=== PATIENT | male | born 1945 | race Caucasian/White ===

== ENCOUNTER 2023-12-14 17:43 | Emergency (ER) | payer MEDICARE, BC ==
[2023-12-14] MEDS ORDERED: Ondansetron PF 4 MG/2 ML Vial ONE ×2 (18:46→21:08)
[2023-12-14] MEDS ORDERED: Morphine 4 MG/ML VIAL ONE ×2 (18:46→21:07)
[2023-12-14 18:50] LABS: Bilirubin Neg (Negative); Blood, Urine 250 (Negative); Clarity Bloody (Clear); Glucose, Urine (Dipstick) Normal (Negative); Ketone, Urine Negative (Negative); Leukocyte 25 (Negative); Nitrite Negative (Negative); Protein, Urine (Dipstick) 500 mg/dl (Neg-Trace); Specific Gravity, Urine 1.015 (1.005-1.030); Urobilinogen Normal mg/dL (Less than 2)
[2023-12-14 18:53] LABS: RBC/HPF Greater than 50 HPF (0-3)
[2023-12-14 18:54] LABS: Bacteria/HPF Rare-Few HPF (None Seen); CAUTI Indications for Culture Pelvic or flank pain; Squamous Epithelial 0-3 HPF (0-3); WBC/HPF 0-3 HPF (0-3)
[2023-12-14 18:55] LABS: Urine Culture Reflex No No
[2023-12-14 18:55] LABS: ALT (SGPT) 24 U/L (8-55); AST (SGOT) 26 U/L (5-34); Albumin 4.2 g/dL (3.4-4.8); Alkaline Phosphatase 59 U/L (40-110); Anion Gap 16 mmol/L (10-20); BUN (Urea Nitrogen) 15 mg/dL (8.4-25.7); Bilirubin, Total 0.6 mg/dL (0.2-1.2); Calc. Creatinine Clearance 0 mL/min (70-130); Calcium 9.1 mg/dL (7.8-10.44); Carbon Dioxide 18 mmol/L (23-31); Chloride 103 mmol/L (98-107); Estimated GFR 62; Globulin 3.2 g/dL (2.4-3.5); Glucose 133 mg/dL (83-110); Lipase 31 U/L (8-78); Potassium 3.9 mmol/L (3.5-5.1); Protein, Total 7.4 g/dL (5.8-8.1); Sodium 133 mmol/L (136-145)
[2023-12-14 19:10] LABS: #Basophils 0.06 10x3/uL (0.0-0.2); #Eosinphils 0.02 10x3/uL (0.0-0.5); #Monocytes 1.44 10x3/uL (0.0-1.1); #Neutrophils 13.25 10x3/uL (1.5-8.4); %Basophils 0.4 % (0.0-2.0); %Eosinophils 0.1 % (0.0-6.0); %Lymphocytes 11.6 % (18.0-47.0); %Monocytes 8.6 % (0.0-10.0); %Neutrophils 78.9 % (40.0-75.0); Hematocrit 40.1 % (38.8-50.0); Hemoglobin 13.9 g/dL (13.5-17.5); Mean Corpuscular HGB CONC 34.7 g/dL (32.0-36.0); Mean Corpuscular Hemoglobin 30.6 pg (27.0-33.0); Mean Corpuscular Volume 88.3 fL (81.2-95.1); Mean Platelet Volume 11.8 fL (7.4-10.4); Platelet Count 211 10x3/uL (150-450); RBC Distribution Width 12.7 % (11.5-14.5); Red Blood Cell (RBC) Count 4.54 10x6/uL (4.32-5.72); White Blood Cell (WBC) Count 16.8 10x3/uL (3.5-10.5)
== END 2023-12-14 21:26 | disposition home or self-care (01) ==
LOC: CSHERS 17:43
DX: N32.9 Bladder disorder, unspecified (principal); R31.9 Hematuria, unspecified; I10 Essential (primary) hypertension; E11.9 Type 2 diabetes mellitus without complications; Z87.891 Personal history of nicotine dependence
CPT/HCPCS: 74177; 80053; 81001; 83690; 85025; 87086; 96374; 96375; 96376; 99284; J2270; J2405; 36415